=== PATIENT | female | born 1945 | race Caucasian/White ===

== ENCOUNTER → 2024-12-01 14:09 | Outpatient (REF) | payer OTHER, MEDICARE, SELFPAY | LOC: RAD 14:09 | PROVIDERS: ATTENDING PHYSICIAN Internal Medicine Rheumatology; FAMILY PHYSICIAN Family Medicine | DX: M81.0 Age-related osteoporosis without current pathological fracture (principal); Z13.820 Encounter for screening for osteoporosis | CPT/HCPCS: 77080 ==